=== PATIENT | male | born 1965 | race African-American/Black ===

== ENCOUNTER 2021-04-01 17:52 | Observation (INO) ==
[2021-04-01] MEDS ORDERED: DEXTROSE 50% 25 GM/50 ML VIAL IV PRN (19:30)
[2021-04-01] MEDS ORDERED: ACETAMINOPHEN 325 MG TABLET PO PRN (19:30)
[2021-04-01] MEDS ORDERED: ONDANSETRON 4 MG/2 ML VIAL IV PRN (19:30)
[2021-04-01] MEDS ORDERED: GLUCAGON 1 MG VIAL IM PRN (19:30)
[2021-04-01] MEDS ORDERED: SODIUM CHLORIDE 0.9% 1,000 ML IV SCH (20:00)
[2021-04-01 20:05] LABS: Basophils # 0.1 10*3/uL (0.0-0.2); Basophils % 0.7 % (0.0-0.8); Eosinophils # 0.1 10*3/uL (0.0-0.87); Eosinophils % 1.3 % (0.00-10.9); Hematocrit 51.1 VOL% (42.0-52.0); Hemoglobin 17.3 GM/DL (14.0-18.0); Immature Granulocytes % 0.4 %; Immature Granulocytes Absolute 0.04 #; Lymphocytes # 1.1 10*3/uL (1.4-4.0); Lymphocytes % 11.9 % (21.2-54.2); Mean Corpuscular HGB Conc 33.9 GM/DL (32-36); Mean Corpuscular Volume 91.1 FL (87-102); Monocytes % 12.4 % (1.7-12.7); Neutrophils % 73.3 % (38.7-73.9); Platelet Count 288 T/CUMM (130-400); Red Blood Count 5.61 MC/CUMM (3.8-5.5); Red Cell Distribution Width 16.9 % (9.3-17.3); White Blood Count 9.1 T/CUMM (4-12)
[2021-04-01 20:15] LABS: INR 1.2; PT Patient Result 13.8 SECS (10.5-12.0)
[2021-04-01 20:29] LABS: Albumin 2.8 G/DL (3.4-5.0); Bilirubin,Total 2.1 MG/DL (0.20-1.00); Calcium 8.3 MG/DL (8.5-10.1); Osmolality,Calculated 282.4 MOS/KG (273-304); Potassium 4.7 MMOL/L (3.5-5.1); Total Protein 5.5 G/DL (6.4-8.2)
[2021-04-01] MEDS ORDERED: SODIUM CHLORIDE 0.9% 1,000 ML IV STA (20:31)
[2021-04-01] MEDS ORDERED: METOPROLOL TARTRATE 5 MG/5 ML VIAL IV STA (20:36)
[2021-04-01] MEDS ORDERED: FUROSEMIDE 40 MG/4 ML VIAL IV ONE (21:09)
[2021-04-01] MEDS ORDERED: ALBUTEROL/IPRATROPIUM 3 ML NEB RESP TX STA (21:31)
[2021-04-01 23:31] LABS: ABG Base Excess -5.4 MMOL/L (-2.5-2.5); ABG HCO3 16.8 MMOL/L (20-26); ABG Oxygen Saturation 97.7 % (95-100); ABG PCO2 26.6 MM HG (35-48); ABG PH 7.418 (7.35-7.45); ABG PO2 102.8 MM HG (80-95); ABG TCO2 17.6 MMOL/L (23-27)
[2021-04-02 00:21] VITALS: BP 96/78
[2021-04-02] MEDS ORDERED: DEXTROSE 50% 25 GM/50 ML SYRINGE IV ONE (03:03)
[2021-04-02] MEDS ORDERED: CALCIUM CHLORIDE 1,000 MG/10 ML SYRINGE IV ONE (03:03)
[2021-04-02] MEDS ORDERED: EPINEPHrine 1 MG/10 ML SYRINGE IV ONE (03:03)
[2021-04-02] MEDS ORDERED: SODIUM BICARBONATE 50 MEQ/50 ML SYRINGE IV ONE (03:03)
[2021-04-02] MEDS ORDERED: EPINEPHrine 1 MG/ML VIAL IV ONE (03:03)
[2021-04-02] MEDS ORDERED: FUROSEMIDE 40 MG/4 ML VIAL IV SCH (08:00)
[2021-04-02] MEDS ORDERED: PANTOPRAZOLE 40 MG TABLET PO SCH (09:00)
== END 2021-04-02 03:04 | disposition expired ==
LOC: N.ED 17:52 → N.EDINP 17:52 → N.3E 23:44
PROVIDERS: ADMIT Internal Medicine; ATTEND Internal Medicine